=== PATIENT | male | born 1960 | race Caucasian/White ===

== ENCOUNTER 2020-09-15 11:33 | Emergency (ER) | payer MEDICAID, SELFPAY ==
[~2020-09-15] VITALS: Ht 167.6 cm; Wt 77.1 kg
[2020-09-15 11:34] VITALS: BP 169/93; Ht 167.6 cm; Wt 77.1 kg
== END 2020-09-15 13:02 | disposition home or self-care (01) ==
LOC: ED 11:33
DX: U07.1 COVID-19 (principal); I10 Essential (primary) hypertension; E11.9 Type 2 diabetes mellitus without complications
CPT/HCPCS: J1885; U0003